=== PATIENT | male | born 1960 | race Caucasian/White ===

== ENCOUNTER 2019-09-08 13:38 | Observation (INO) ==
[2019-09-08] MEDS ORDERED: *HR* LORazepam 2 MG/ML VIAL IVP ONE ×2 (13:47→15:24)
[2019-09-08] MEDS ORDERED: 0.9 % Sodium Chloride 1,000 ML IVC ONE (13:49)
[2019-09-08] MEDS ORDERED: *HR* LORazepam 2 MG/ML VIAL ONE (13:50)
[2019-09-08] MEDS ORDERED: 0.9 % Sodium Chloride 1,000 ML ONE (13:50)
[2019-09-08 14:22] LABS: Prothrombin Time 11.5 Seconds (9.4-12.1)
[2019-09-08] MEDS ORDERED: Isovue-370 500 ML BOTTLE IVP ONE (14:22)
[2019-09-08 14:24] LABS: Activated Partial Thrombo Time 32.7 Seconds (26.0-36.0)
[2019-09-08 14:36] LABS: Acetaminophen < 10 mcg/mL (10-20); BUN/Creatinine Ratio 15 (6-26); Blood Urea Nitrogen 12 mg/dL (6-20); Calcium 8.4 mg/dL (8.6-10.3); Carbon Dioxide 24 mEq/L (23-29); Chloride 99 mEq/L (98-107); Creatine Kinase 129 Units/L (30-223); Ethanol < 10 mg/dL (Less than 10); Glucose 142 mg/dL (70-105); Osmolality,Calculated 274 (280-300); Potassium 3.4 mEq/L (3.5-5.1); Salicylate < 2.5 mg/dL (15.0-30.0); Sodium 131 mEq/L (136-145); eGFR For African Americans > 60 (> 60); eGFR For Non-African Americans > 60 (> 60)
[2019-09-08 14:37] LABS: Troponin I < 0.03 ng/mL (< 0.04)
[2019-09-08] MEDS ORDERED: Potassium Chloride Elixir 20 MEQ/15 ML UDC PO ONE (15:21)
[2019-09-08] MEDS ORDERED: Haloperidol Lactate 5 MG/ML VIAL IVP ONE (15:24)
[2019-09-08 16:16] LABS: Amphetamine Screen,Urine Negative ng/mL (Cutoff=1000); Barbiturate Screen,Urine Negative ng/mL (Cutoff=200); Benzodiazepines Screen,Urine Negative ng/mL (Cutoff=200); Bilirubin,Urine Negative (Negative); Blood,Urine Negative (Negative); Cannabinoid Screen,Urine Negative ng/mL (Cutoff = 50); Clarity,Urine Clear (Clear); Cocaine Screen,Urine Negative ng/mL (Cutoff= 300); Color,Urine Yellow (Yellow); Glucose,Urine (UA) Normal (Normal); Ketones,Urine Negative (Negative); Leukocyte Esterase,Urine Negative (Negative); Nitrite,Urine Negative (Negative); Opiate Screen,Urine Negative ng/mL (Cutoff=300); Phencyclidine Screen,Urine Negative ng/mL (Cutoff=25); Protein,Urine Negative (Neg-Trace); Specific Gravity,Urine 1.017 (1.010-1.025); Urobilinogen,Urine Normal (Normal)
[2019-09-08 16:21] LABS: Hemoglobin 16.3 g/dL (12.9-16.9); Mean Corpuscular HGB Conc 35.4 g/dL (31.6-35.5); Mean Corpuscular Hemoglobin 31.5 pg (28.0-33.3); Mean Corpuscular Volume 88.8 fL (83.0-100.0); Mean Platelet Volume 9.7 fL (9.4-12.4); Platelet Count 270 K/mcL (140-400); Red Blood Count 5.18 M/mcL (4.19-5.50); Red Cell Distribution Width 13.9 % (11.5-14.5); White Blood Count 10.7 K/mcL (4.3-11.1)
[2019-09-08] MEDS ORDERED: 0.9 % Sodium Chloride w KCl 20 MEQ/1,000 ML MLS IVC SCH (17:15)
[2019-09-08] MEDS ORDERED: Naloxone 0.4 MG/ML INJ IVP PRN (18:34)
[2019-09-08] MEDS ORDERED: RisperiDAL 3 MG TABLET PO SCH (21:00)
[2019-09-08] MEDS ORDERED: cloZAPine 100 MG TABLET PO SCH (21:00)
[2019-09-08 23:09] VITALS: BP 112/77
[2019-09-09] MEDS ORDERED: Famotidine 20 MG TABLET PO SCH (09:00)
[2019-09-09] MEDS ORDERED: lamoTRIgine 100 MG TABLET PO SCH (09:00)
[2019-09-09] MEDS ORDERED: Multivit/Ca/Min/Fe/FA 1 TAB TABLET PO SCH (09:00)
[2019-09-09] MEDS ORDERED: amLODIPine 5 MG TABLET PO SCH (09:00)
== END 2019-09-09 01:18 | disposition other institution (70) ==
LOC: EMEROOARM 13:38 → 3BNU 13:38
PROVIDERS: ADMIT Internal Medicine; ATTEND Internal Medicine